=== PATIENT | male | born 1980 | race Caucasian/White ===

== ENCOUNTER 2021-08-01 08:01 | Emergency (ER) | payer OTHER ==
[~2021-08-01] VITALS: Ht 180.3 cm; Wt 86.2 kg
[~2021-08-01 08:01] MED LIST: ALPR1 PO; CLON1 PO; IBUP400 PO; LORA2 PO; NAPR500 PO; OXYACE5T PO; SERT25 PO
[2021-08-01] MEDS ORDERED: IBUP800 PO (09:45)
[2021-08-01] MEDS ORDERED: Percocet 5-3251 EACH PO (09:45)
== END 2021-08-01 10:11 | disposition home or self-care (01) ==
LOC: ER 08:01
DX: M54.50 Low back pain, unspecified (principal); M25.571 Pain in right ankle and joints of right foot; F41.9 Anxiety disorder, unspecified; Z88.5 Allergy status to narcotic agent; Z79.899 Other long term (current) drug therapy; V89.2XXA Person injured in unspecified motor-vehicle accident, traffic, initial encounter
CPT/HCPCS: 72100; 73610; 99284-25; A9270

== ENCOUNTER 2024-06-11 08:10 | Day surgery (SDC) | payer OTHER ==
[~2024-06-11] VITALS: Ht 177.8 cm; Wt 101.5 kg
[~2024-06-11 08:10] MED LIST changes: +Benzocaine Oral Spray 0.5ML UD ONE; +FLUO10 PO; +IBUP800 PO; +OMEP20ER PO; +Percocet 5-3251 EACH PO; +Prinivil10 MG PO
[2024-06-11] MEDS ORDERED: Lactated Ringer's 1,000 ML IV SCH (08:35)
--- NOTE | 2024-06-11 09:22 | NUR ---
PT TO DAY SURGERY FOR EGD. CHART REVIEWED. PLAN OF CARE DISCUSSED WITH PT, QUESTIONS ANSWERED. PT HAS RIDE HOME ARRANGED.
[2024-06-11 09:32] VITALS: BP 115/75
[2024-06-11] MEDS ORDERED: Midazolam HCl 1MG / ML 2ML Vial ONE ×2 (10:09→10:17)
[2024-06-11] MEDS ORDERED: propofoL 20 ML IV ONE (10:09)
[2024-06-11 10:32] VITALS: BP 107/76
[2024-06-11 10:35] VITALS: BP 108/87
[2024-06-11 10:49] VITALS: BP 114/76
--- NOTE | 2024-06-11 10:58 | NUR ---
Discharge instructions reviewed with patient. Patient verbalizes understanding. Copy given to patient to take home. Patient States Post-Procedure ride home has been arranged. Discharged via wheelchair to private car for ride home.
--- NOTE | 2024-06-13 12:11 | NUR ---
06/13/24 1211 Rama Amaro ON DAY OF PROCEDURE HISTORY, CHART, MEDICATIONS AND ALLERGIES REVIEWED BEFORE START OF PROCEDURE. PATIENT CONFIRMS NPO STATUS AND AGREES WITH SCHEDULED PROCEDURE. 3-LEAD EKG REVIEWED WITH PHYSICIAN PRIOR TO START OF PROCEDURE. MONITOR INTACT WITH CONTINUOUS PULSE OXIMETRY,CAPNOGRAPHY, 3-LEAD EKG, INTERMITTENT BP. SUPPLEMENTAL O2 TO BE TITRATED THROUGHOUT PROCEDURE TO MAINTAIN O2 SATURATION ABOVE 90%. PATIENT DETERMINED TO BE ASA APPROPRIATE FOR PROPOFOL SEDATION PRIOR TO START OF PROCEDURE BY DR. OSPINA
== END 2024-06-11 10:57 | disposition home or self-care (01) ==
LOC: ORSCMMR 08:10 → ORD 09:30 → ORSCMMR 10:57
DX: R10.13 Epigastric pain (principal); I10 Essential (primary) hypertension; F32.A Depression, unspecified; Z79.899 Other long term (current) drug therapy
CPT/HCPCS: 88305; 88342; A9270; J2250; J2704; J7120

== ENCOUNTER → 2024-07-22 | Outpatient (CLI) | payer OTHER ==
[~2024-07-22] MED LIST changes: -Benzocaine Oral Spray 0.5ML UD ONE
[2024-07-22 14:34] LABS: BASOPHILS ABSOLUTE AUTO 0.05 K/mm3 (0.00-0.23); BASOPHILS PERCENT AUTO 1 % (0-2); EOSINOPHILS ABSOLUTE AUTO 0.25 K/mm3 (0.00-0.68); EOSINOPHILS PERCENT AUTO 4 % (0-6); Hematocrit 45.7 % (37.0-53.0); Hemoglobin 15.4 g/dL (13.5-17.5); IMMATURE GRAN ABSOLUTE AUTO 0.02 K/mm3 (0.00-0.10); IMMATURE GRAN PERCENT AUTO 0 % (0-1); LYMPHOCYTES ABSOLUTE AUTO 1.71 K/mm3 (0.84-5.20); LYMPHOCYTES PERCENT AUTO 28 % (21-46); MONOCYTES ABSOLUTE AUTO 0.43 K/mm3 (0.16-1.47); MONOCYTES PERCENT AUTO 7 % (4-13); Mean Corpuscular HGB 28.7 pg (26.0-34.0); Mean Corpuscular HGB Conc 33.7 g/dL (31.5-36.5); Mean Corpuscular Volume 85 fL (80-100); Mean Platelet Volume 9.7 fL (9.1-12.4); NEUTROPHILS ABSOLUTE AUTO 3.64 K/mm3 (1.96-9.15); NEUTROPHILS PERCENT AUTO 60 % (41-73); Platelet Count 380 K/mm3 (150-400); RDW Coefficient Variation 13.1 % (11.7-14.2); RDW Standard Deviation 40.2 fL (35.1-46.3); Red Blood Cell Count 5.36 M/mm3 (4.30-5.90)
[2024-07-22 20:23] LABS: Alanine Aminotransfer (ALT/SGP 41 U/L (12-78); Albumin, Blood 4.1 g/dL (3.4-5.0); Alk Phos 70 U/L (50-136); Anion Gap 11 mmol/L (3-11); Aspartate Aminotrans (AST/SGOT 23 U/L (12-37); Bilirubin, Total 0.4 mg/dL (0.1-1.0); Blood Urea Nitrogen 17 mg/dL (8-24); CO2, Blood 26 mmol/L (21-32); Calcium, Blood 9.6 mg/dL (8.5-10.1); Chloride, Blood 103 mmol/L (98-108); Cholesterol 258 mg/dL (50-200); Creatinine, Blood 0.89 mg/dL (0.60-1.20); Globulin, Blood 4.2 g/dL (2.2-4.0); Glomerular Filtration Rate 108 (60-); Glucose, Blood 103 mg/dL (70-99); HDL Cholesterol 52 mg/dL (>39); LDL/HDL RATIO 3.4; Low Density Lipoprotein Chol 176 mg/dL (0-110); Potassium, Blood 4.5 mmol/L (3.5-5.5); Sodium, Blood 135 mmol/L (136-145); Total Protein, Blood 8.3 g/dL (6.4-8.2); Triglycerides 150 mg/dL (30-160); Very Low Density Lipoprot Chol 30 mg/dL (6-32)
== END | disposition home or self-care (01) ==
LOC: LAB 11:32 → LAB SHORT 11:32
DX: I10 Essential (primary) hypertension (principal)
CPT/HCPCS: 80053; 80061; 84443; 85025